=== PATIENT | male | born 1980 | race Caucasian/White ===

== ENCOUNTER 2018-01-25 19:27 | Emergency (ER) | payer OTHER ==
[~2018-01-25] VITALS: Ht 167.6 cm; Wt 61.2 kg
[2018-01-25 19:31] VITALS: BP_SYST 136
[2018-01-25] MEDS ORDERED: KETOROLAC TROMETHAMINE 60 MG/2 ML VIAL IM ONE (20:00)
[2018-01-25] MEDS ORDERED: ONDANSETRON 4 MG ODT TAB PO ONE (22:15)
[2018-01-25] MEDS ORDERED: MORPHINE 4 MG/ML INJ. SYRINGE IM ONE (22:15)
[2018-01-25 22:43] VITALS: BP_SYST 132
== END 2018-01-25 22:43 | disposition home or self-care (01) ==
LOC: SED 19:27
DX: S16.1XXA Strain of muscle, fascia and tendon at neck level, initial encounter (principal); S39.012A Strain of muscle, fascia and tendon of lower back, initial encounter; R03.0 Elevated blood-pressure reading, without diagnosis of hypertension; Z88.5 Allergy status to narcotic agent; Z88.6 Allergy status to analgesic agent; Z88.2 Allergy status to sulfonamides; Z88.8 Allergy status to other drugs, medicaments and biological substances; V43.52XA Car driver injured in collision with other type car in traffic accident, initial encounter; Y93.89 Activity, other specified; Y92.411 Interstate highway as the place of occurrence of the external cause; Y99.8 Other external cause status
CPT/HCPCS: 72125; 72128; 72131; 96372; 99284; J1885; J2270; Q0162